=== PATIENT | female | born 2000 | race African-American/Black ===

== ENCOUNTER → 2023-06-29 | Outpatient (CLI) | payer OTHER ==
[2023-06-30 03:07] LABS: RUBELLA AB IGG-REFLAB 1.55 index (Immune >0.99)
== END | disposition home or self-care (01) ==
LOC: LABMN 11:38
PROVIDERS: ATTEND Internal Medicine
DX: Z02.1 Encounter for pre-employment examination (principal)
CPT/HCPCS: 86706; 86735; 86762; 86765; 86787